=== PATIENT | female | born 1975 | race Caucasian/White ===

== ENCOUNTER 2022-02-13 18:26 | Outpatient (CLI) | payer OTHER, SELFPAY ==
[2022-02-13 14:16] LABS: Creatinine Urine 195.5 mg/dL
[2022-02-13 14:20] LABS: Microalbumin Creatinine Ratio 0 mg/g (0-30); Microalbumin Urine 1 mg/dL
[2022-02-13 16:10] LABS: Albumin* 4.2 g/dL (3.3-5.0); Chloride* 103 mmol/L (96-114); Sodium* 137 mmol/L (135-149)
[2022-02-13 16:11] LABS: Potassium* 4.4 mmol/L (3.6-5.1)
[2022-02-13 16:12] LABS: Cholesterol* 159 mg/dL (90-199); Creatinine* 0.5 mg/dL (0.5-1.5); Estimated Glomerular Filt Rate 118 ml/min
[2022-02-13 16:13] LABS: Alanine Aminotransferase* 24 U/L (4-35); Alkaline Phosphatase* 77 U/L (40-150); Aspartate Amino Transferase* 19 U/L (12-35); Bilirubin Total* 0.4 mg/dL (0.1-1.5); Blood Urea Nitrogen* 13 mg/dL (5-24); Calcium* 9.1 mg/dL (8.4-10.6); Carbon Dioxide* 26 mmol/L (20-32); Glucose* 171 mg/dL (60-115); Total Protein* 6.9 g/dL (6.0-8.3); Triglycerides* 232 mg/dL (40-149)
[2022-02-13 16:14] LABS: HDL Cholesterol* 36 mg/dL (>=50); LDL Cholesterol Calculated 77 mg/dL (<100)
[2022-02-13 17:02] LABS: Vitamin B12* 348 pg/mL (243-894)
== END 2022-02-13 18:27 | disposition home or self-care (01) ==
PROVIDERS: PCP Physician Assistant Medical; Visit Provider Physician Assistant Medical
DX: Z00.00 Encounter for general adult medical examination without abnormal findings (principal); E11.9 Type 2 diabetes mellitus without complications; Z13.29 Encounter for screening for other suspected endocrine disorder; Z13.6 Encounter for screening for cardiovascular disorders
CPT/HCPCS: 80053; 80061; 82043; 82570; 82607; 84443

== ENCOUNTER 2022-02-19 12:56 | Outpatient (CLI) | payer OTHER, SELFPAY ==
--- NOTE | 2022-02-19 13:00 | CRLHL7_ITS ---
For Patients: As a result of the Century Cures Act, medical imaging exams and procedure reports are released immediately into your electronic medical record. You may view this report before your referring provider. If you have questions, please contact your health care provider. INDICATION: PELVIC PAIN COMPARISON: 06/26/2017 TECHNIQUE: 2D hammonds scale and color Doppler images were acquired of the pelvis using a transabdominal and transvaginal approach. Power Doppler evaluation of the ovaries also performed. FINDINGS: Sonographic images demonstrate a normal size and smooth outer contour of the uterus. Uterus measures 10.9 cm in length by 4.6 cm in AP diameter by 6.3 cm in transverse dimension. The myometrium has a heterogeneous echotexture. A small right fundal submucosal fibroid is present measuring 1.1 x 1.0 x 1.2 cm. The endometrial lining appears thickened and heterogeneous and measures 17 mm in composite thickness. The right ovary measures 3.1 x 1.6 x 1.5 cm in size and the left ovary measures 3.0 x 1.0 x 1.4 cm. The ovaries demonstrate normal arterial and venous blood flow on color Doppler analysis. Normal power Doppler evaluation of the ovaries. No torsion. There are no suspicious fluid collections within the cul-de-sac. IMPRESSION: 17 millimeter heterogeneous endometrial stripe. Small submucosal right fundal fibroid measuring 1.2 cm. Normal ovaries without torsion. No adnexal mass. Dictated by Ollie Potter MD @ 02/19/2022 2:11:39 PM (Electronically Signed)
== END 2022-02-19 12:57 | disposition home or self-care (01) ==
LOC: US 12:56
PROVIDERS: PCP Physician Assistant Medical; Visit Provider Physician Assistant Medical
DX: R10.2 Pelvic and perineal pain (principal); D25.9 Leiomyoma of uterus, unspecified
CPT/HCPCS: 76830; 76856; 93976

== ENCOUNTER 2022-04-09 11:23 | Outpatient (CLI) | payer OTHER, SELFPAY ==
--- NOTE | 2022-04-09 11:30 | CRLHL7_ITS ---
For Patients: As a result of the Century Cures Act, medical imaging exams and procedure reports are released immediately into your electronic medical record. You may view this report before your referring provider. If you have questions, please contact your health care provider. BILATERAL SCREENING MAMMOGRAM WITH COMPUTER-AIDED DETECTION TECHNIQUE: CC and MLO views were obtained. These mammographic images have been obtained using full-field digital technique. These mammographic images were interpreted with the benefit of computer-aided detection. COMPARISON FILM: 03/15/21. FINDINGS: The breasts are almost entirely fatty IMPRESSION: There is no radiographic evidence for malignancy. ASSESSMENT: BI-RADS Category 1: Negative RECOMMENDATION: Routine screening mammogram in 1 year. A lay language report of this examination will be provided to the patient. Lonnie Keys M.D. Diagnostic/Nuclear Medicine Radiologist [email or web address] Transcribed: 3:11 p.m. TREY/Dictated by: Lonnie Keys MD @ 04/10/2022 8:12:00 AM (Electronically Signed)
== END 2022-04-09 11:24 | disposition home or self-care (01) ==
LOC: MAMMO 11:24
PROVIDERS: PCP Physician Assistant Medical; Visit Provider Physician Assistant Medical
DX: Z12.31 Encounter for screening mammogram for malignant neoplasm of breast (principal)
CPT/HCPCS: 77063; 77067

== ENCOUNTER 2022-04-19 08:45 | Day surgery (SDC) | payer OTHER, SELFPAY ==
[2022-04-19 09:03] VITALS: BMI 51.0
[2022-04-19 09:08] VITALS: BP 136/72; PULSE 73; RESP 16; TEMP 36.8; O2SAT 97
[2022-04-19 09:10] LABS: Ur HCG Qualitative* Negative (Negative)
[2022-04-19] MEDS: LACTATED RINGERS 1000 ML 1,000 ML 100 ML IV (09:25)
[2022-04-19] MEDS: ETHYL CHLORIDE 1 APPLICATION 1 APPLIC TOPICAL (09:25)
[2022-04-19] MEDS: SODIUM CHLORIDE 0.9 % (FLUSH) 10 ML SYRINGE IVF (09:25)
--- NOTE | 2022-04-19 09:46 | SUR.PREOP ---
HOME COVID ANTIGEN TEST NEGATIVE.
[2022-04-19 10:21] VITALS: BP 115/58; PULSE 81; RESP 16; TEMP 36.1; O2SAT 97
--- NOTE | 2022-04-19 10:25 | W.ANESCHARGE ---
Anesthesia Charges Start Date/Time Anesthesia Start Date: 04/19/22 Anesthesia Start Time: 09:40 Stop Date/Time Anesthesia Stop Date: 04/19/22 Anesthesia Stop Time: 10:23 Summary Emergency: No
[2022-04-19 10:30] VITALS: BP 121/44; PULSE 82; RESP 16; O2SAT 96
--- NOTE | 2022-04-19 10:36 | W.PM.GYNPROC ---
Procedure Note Date Seen: 04/19/22 Procedure Details: Preop diagnosis: Abnormal uterine bleeding, thick endometrial lining Postop diagnosis: Same, suspected endometrial polyps Name of procedure: Hysteroscopy, dilation and curettage Surgeon: Tori Alexander [employer] Teacher: None Complications: None EBL: 5mL Drains: None Findings: Bimanual exam: Antevereted uterus of about 10cm, regular contour, no adnexal masses. Intrauterine cavity: Bilateral cornual openings seen, multiple polypoid lesions in the endometrium. Thick endometrial lining. Patient was taken to the OR were MAC anesthesia was administered without difficulty. She was placed in the dorsal lithotomy position with Shaq type stirrups. An exam under anesthesia as described above. Patient was then prepared and draped in the normal sterile fashion. A bivalved speculum was inserted in the posterior aspect of the vagina. 0.5% Marcaine was injected at 2 and 11 o'clock a total of about 8mL utilized. A single-tooth tenaculum was used to grasp the anterior lip of the cervix. The uterus was carefully sounded to 10 cm. The cervical os was sequentially dilated to accommodate the 5 mm TrueClear hysteroscope using Hegar dilators. A 5 mm 30 degree TrueClear hysteroscope was introduced under direct visualization, and the uterus was distended with normal saline. Findings as above. Soft tissue incisor blade from TrueClear hysteroscope system was introduced under direct visualization and endometrial curettings performed with removal of polypoid lesions. Hysteroscope removed under direct visualization. A small curette was inserted and sharp curettings also performed until a gritty feeling was felt in all quadrants. Tenaculum was removed from the cervix and good hemostasis was noted at puncture sites. Patient tolerated the procedure well. Instrument and sponge counts were correct x2. The patient was awakened from MAC anesthesia and taken to the recovery room in a stable condition. The patient will go home after recovering from anesthesia and meeting all the criteria for discharge. She was given instruction regarding follow-up visit in 2 weeks at [facility] and instructions for pain medication. Fluid deficit: 480mL
[2022-04-19] MEDS: ACETAMINOPHEN 500 MG TABLET 1000 MG PO (10:41)
[2022-04-19 10:45] VITALS: BP 111/61; PULSE 81; RESP 16; O2SAT 97
[2022-04-19 11:00] VITALS: BP 119/55; PULSE 75; RESP 16; O2SAT 99
--- NOTE | 2022-04-19 12:38 | W.ANESCHARGE ---
Anesthesia Charges Start Date/Time Anesthesia Start Date: 04/19/22 Anesthesia Start Time: 09:40 Stop Date/Time Anesthesia Stop Date: 04/19/22 Anesthesia Stop Time: 10:23 Summary Emergency: No
== END 2022-04-19 11:20 | disposition home or self-care (01) ==
PROVIDERS: PCP Physician Assistant Medical; Visit Provider Obstetrics & Gynecology
PROC: 0UDB8ZZ Extraction of Endometrium, Via Natural or Artificial Opening Endoscopic (ICD-10-PCS; CPT 58558; principal; 2022-04-19 09:45)
DX: N93.8 Other specified abnormal uterine and vaginal bleeding (principal); R93.89 Abnormal findings on diagnostic imaging of other specified body structures; N84.0 Polyp of corpus uteri
CPT/HCPCS: 58558; 36415; 81025; 82962; 85018; 88305; 952; A9270; J1100; J1885; J2250; J2405; J2704; J3010; J3490; J7120

== ENCOUNTER 2022-11-26 09:53 | Outpatient (CLI) | payer OTHER, SELFPAY | END 2022-11-26 09:54 | disposition home or self-care (01) | PROVIDERS: PCP Physician Assistant Medical; Visit Provider Physician Assistant Medical | DX: Z01.818 Encounter for other preprocedural examination (principal); E11.9 Type 2 diabetes mellitus without complications; Z13.6 Encounter for screening for cardiovascular disorders | CPT/HCPCS: 80061; 82043; 82570 ==

== ENCOUNTER 2022-12-13 08:43 | Outpatient (CLI) | payer OTHER, SELFPAY | END 2022-12-13 08:44 | disposition home or self-care (01) | LOC: NFLDREF 12-14 14:27 | PROVIDERS: PCP Physician Assistant Medical; Referring Provider Physician Assistant Medical; Visit Provider Physician Assistant Medical | DX: E78.1 Pure hyperglyceridemia (principal) | CPT/HCPCS: 80061 ==

== ENCOUNTER 2022-12-14 08:30 | Outpatient (CLI) | payer OTHER, SELFPAY ==
--- NOTE | 2022-12-14 09:30 | W.ANESCHARGE ---
Anesthesia Charges Start Date/Time Anesthesia Start Date: 12/14/22 Anesthesia Start Time: 09:10 Stop Date/Time Anesthesia Stop Date: 12/14/22 Anesthesia Stop Time: 09:30
--- NOTE | 2022-12-14 10:09 | W.ANESCHARGE ---
Anesthesia Charges Start Date/Time Anesthesia Start Date: 12/14/22 Anesthesia Start Time: 09:10 Stop Date/Time Anesthesia Stop Date: 12/14/22 Anesthesia Stop Time: 09:30
== END 2022-12-14 08:31 | disposition home or self-care (01) ==
LOC: OP CLINIC 08:31
PROVIDERS: PCP Physician Assistant Medical; Visit Provider Internal Medicine
DX: Z12.11 Encounter for screening for malignant neoplasm of colon (principal); K64.9 Unspecified hemorrhoids; K63.5 Polyp of colon; Z86.010 Personal history of colon polyps
CPT/HCPCS: 00811; 45380; 88305; J2704

== ENCOUNTER 2023-07-15 09:10 | Outpatient (CLI) | payer OTHER, SELFPAY ==
--- NOTE | 2023-07-15 09:15 | MM_ITS ---
BILATERAL SCREENING MAMMOGRAPHY. COMPARISON: 04/09/2022, 03/15/2021, 11/23/2019 FINDINGS: SCATTERED FIBROGLANDULAR DENSITIES ARE PRESENT. NO SUSPICIOUS MASSES OR ARCHITECTURAL DISTORTION. NO SUSPICIOUS CALCIFICATIONS. IMPRESSION: NEGATIVE. NO EVIDENCE OF MALIGNANCY. RECOMMENDATIONS: ANNUAL BILATERAL SCREENING MAMMOGRAPHY. BI-RADS CATEGORY 1. NEGATIVE.
== END 2023-07-15 09:11 | disposition home or self-care (01) ==
LOC: MAMMO 09:11
PROVIDERS: PCP Physician Assistant Medical; Visit Provider Physician Assistant Medical
DX: Z12.31 Encounter for screening mammogram for malignant neoplasm of breast (principal)
CPT/HCPCS: 77063; 77067

== ENCOUNTER 2024-02-06 08:27 | Outpatient (CLI) | payer OTHER, SELFPAY | END 2024-02-06 08:28 | disposition home or self-care (01) | PROVIDERS: PCP Physician Assistant Medical; Visit Provider Physician Assistant Medical | DX: E78.5 Hyperlipidemia, unspecified (principal); E11.65 Type 2 diabetes mellitus with hyperglycemia; Z79.84 Long term (current) use of oral hypoglycemic drugs; Z13.21 Encounter for screening for nutritional disorder; Z13.29 Encounter for screening for other suspected endocrine disorder | CPT/HCPCS: 80053; 80061; 82043; 82570; 82607; 84443 ==

== ENCOUNTER 2024-10-01 08:11 | Outpatient (CLI) | payer BC, SELFPAY ==
--- NOTE | 2024-10-01 08:15 | CRLHL7_ITS ---
For Patients: As a result of the Century Cures Act, medical imaging exams and procedure reports are released immediately into your electronic medical record. You may view this report before your referring provider. If you have questions, please contact your health care provider. INDICATION: BILATERAL SCREENING MAMMOGRAM, ASYMPTOMATIC 49 Y/O FEMALE COMPARISON: 07/15/23, 04/09/22, 03/15/21 TECHNIQUE: CC and MLO views were obtained. These mammographic images have been obtained using full-field digital technique. These mammographic images were interpreted with the benefit of computer aided detection and tomosynthesis. BREAST COMPOSITION: There are scattered areas of fibroglandular density. FINDINGS: No suspicious findings. ASSESSMENT: BI-RADS 1 Negative RECOMMENDATION: Annual screening mammogram. A lay language report of this examination will be provided to the patient. Dictated by: Ollie Potter MD @ 10/08/2024 12:56:48 (Electronically Signed)
== END 2024-10-01 08:12 | disposition home or self-care (01) ==
LOC: MAMMO 08:12
PROVIDERS: PCP Physician Assistant Medical; Visit Provider Physician Assistant Medical
DX: Z12.31 Encounter for screening mammogram for malignant neoplasm of breast (principal)
CPT/HCPCS: 77063; 77067

== ENCOUNTER 2024-12-28 09:41 | Outpatient (CLI) | payer BC, SELFPAY ==
--- NOTE | 2024-12-28 10:00 | CRLHL7_ITS ---
For Patients: As a result of the Century Cures Act, medical imaging exams and procedure reports are released immediately into your electronic medical record. You may view this report before your referring provider. If you have questions, please contact your health care provider. CLINICAL HISTORY: Pelvic perineal pain Comparison 02/19/2022 pelvic ultrasound. TECHNIQUE: Real time, hammonds scale images were acquired of the pelvis using a transabdominal and transvaginal approach. Color Doppler analysis was performed of the ovaries. FINDINGS: The uterus measures 8 x 5.3 x 5.8 centimeters endometrium measures 7 millimeters. Similar appearance of right submucosal fibroid measuring 0.9 centimeters. Ovaries are unremarkable. Right ovary measures 2.6 x 1 x 1.1 centimeters Left ovary measures 2.5 x 0.8 x 1 centimeters Blood flow to both ovaries. IMPRESSION: Unremarkable exam. Normal blood flow to both ovaries. Right-sided submucosal fibroid without significant change. Dictated by Gabby Liu MD @ 12/31/2024 11:35:49 AM (Electronically Signed)
== END 2024-12-28 09:42 | disposition home or self-care (01) ==
LOC: US 09:42
PROVIDERS: PCP Physician Assistant Medical; Visit Provider Obstetrics & Gynecology
DX: R10.2 Pelvic and perineal pain (principal)
CPT/HCPCS: 76830; 93976

== ENCOUNTER 2025-01-11 08:20 | Outpatient (CLI) | payer BC, SELFPAY | END 2025-01-11 08:21 | disposition home or self-care (01) | LOC: NFLDREF 01-14 16:26 | PROVIDERS: PCP Physician Assistant Medical; Referring Provider Physician Assistant Medical; Visit Provider Physician Assistant Medical | DX: E78.1 Pure hyperglyceridemia (principal); E66.9 Obesity, unspecified; E11.9 Type 2 diabetes mellitus without complications | CPT/HCPCS: 80053; 80061; 82043; 82306; 82570; 82607; 84443 ==